=== PATIENT | male | born 1970 | race Caucasian/White ===

== ENCOUNTER 2021-01-06 12:41 | Emergency (ER) | payer OTHER ==
[~2021-01-06] VITALS: Ht 182.9 cm; Wt 115.7 kg
[~2021-01-06 12:41] MED LIST: ALLOPURINOL 10100 M1 PO; FLOMAX0.4 MG PO; ONDANSETRON HCL4 M2 PO; PERCOCET 5-3251 EACH PO
[2021-01-06 15:44] LABS: URINE BILIRUBIN NEGATIVE (Negative); URINE BLOOD 1+ (Negative); URINE CLARITY CLEAR; URINE COLOR YELLOW; URINE GLUCOSE-RANDOM NEGATIVE (Negative); URINE KETONES NEGATIVE (Negative); URINE LEUKOCYTES NEGATIVE (Negative); URINE NITRITE NEGATIVE (Negative); URINE PROTEIN NEGATIVE (Negative); URINE UROBILINOGEN 0.2 E.U./dl (0.2-1.0)
[2021-01-06 15:53] LABS: CRYSTALS None Seen /LPF (None Seen); HYALINE CASTS 0-3 Few /LPF (None Seen); MUCUS 0-3 Light strn/LPF (None Seen); SQUAMOUS NONE SEEN /LPF (0-3); URINE RBC 0-2 Rare /HPF (0-2); URINE WBC 0-5 Rare /HPF (0-5)
[2021-01-06 15:54] LABS: BACTERIA None Seen /HPF (None Seen)
[2021-01-06 16:09] LABS: ABSOLUTE EOSINOPHILS 0.1 thou/uL (0.0-0.7); ABSOLUTE LYMPHOCYTES 0.9 thou/uL (0.8-5.3); ABSOLUTE NEUTROPHILS 4.1 thou/uL (1.6-8.1); BASOPHILS 0.4 %; HEMATOCRIT 47.3 % (42.0-52.0); HEMOGLOBIN 16.3 gm/dL (14.0-18.0); LYMPHOCYTES 14.6 %; MCH 29.8 pg (26.0-34.0); MCHC 34.5 g/dL (28.0-37.0); MCV 86.4 fL (80.0-100.0); MONOCYTES 16.8 %; MPV 8.5 fl. (7.2-11.1); NUCLEATED RBCS 0 /100WBC; PLATELET COUNT* 133 thou/uL (150-400); POLYS 67.2 %; RBC 5.47 mil/uL (4.50-6.00); RDW-CV 13.5 % (10.5-14.5); WBC 6.2 thou/uL (4.0-11.0)
[2021-01-06 16:49] LABS: CALCIUM 8.6 mg/dL (8.5-10.1); CREATININE 1.2 mg/dL (0.6-1.3); POTASSIUM 3.5 mmol/L (3.5-5.1)
[2021-01-06 16:53] LABS: ALBUMIN 4.2 g/dL (3.4-5.0); TOTAL BILIRUBIN 0.5 mg/dL (<0.1-1.0); TOTAL PROTEIN 7.5 g/dL (6.4-8.2)
[2021-01-06] MEDS ORDERED: TORADOL 10 MG T10 MG PO (18:08)
[2021-01-06 18:14] VITALS: BP 150/80
== END 2021-01-06 18:15 | disposition home or self-care (01) ==
LOC: M.ERS 12:41
PROVIDERS: Physician Assistant
DX: N20.0 Calculus of kidney (principal)